=== PATIENT | female | born 1960 | race Caucasian/White ===

== ENCOUNTER 2018-12-24 10:25 | Inpatient (IN) | payer MEDICARE, OTHER ==
[~2018-12-24] VITALS: Ht 162.6 cm; Wt 99.0 kg
[2018-12-24] MEDS ORDERED: ONDA4 PO (10:39)
[2018-12-24] MEDS ORDERED: METF500T7 PO (10:39)
[2018-12-24] MEDS ORDERED: SITA100 PO (10:39)
[2018-12-24] MEDS ORDERED: GLIP10 PO (10:39)
[2018-12-24] MEDS ORDERED: ESCI10TA PO (10:39)
[2018-12-24] MEDS ORDERED: GABA-531 PO (10:39)
[2018-12-24] MEDS ORDERED: FLUT16H NASAL (10:39)
[2018-12-24] MEDS ORDERED: PIOG30TA10 PO (10:39)
[2018-12-24] MEDS ORDERED: ALBUTEROL SULFATE 2.5 MG/0.5 ML NEB SOLUTION NEB ONE (11:30)
[2018-12-24] MEDS ORDERED: MethylPREDNISolone SOD SUCC 125 MG/2 ML VIAL IVP ONE (11:30)
[2018-12-24] MEDS ORDERED: IPRATROPIUM BROMIDE 0.5 MG/2.5 ML NEB SOLUTION NEB ONE (11:30)
[2018-12-24] MEDS ORDERED: 0.9% SODIUM CHLORIDE 5 ML NEB SOLUTION NEB ONE (11:39)
[2018-12-24 11:54] LABS: BASOPHILS % (AUTO) 0.4 % (0.0-2.0); EOSINOPHILS % (AUTO) 2.1 % (1.0-6.0); HEMATOCRIT 42.8 % (36-46); HEMOGLOBIN 14.1 g/dL (12.0-16.0); LYMPHOCYTES # (AUTO) 0.8 K/uL (1.0-4.8); LYMPHOCYTES % (AUTO) 14.1 % (22.0-44.0); MEAN CORPUSCULAR HEMOGLOBIN 29.5 pg (26.0-34.0); MEAN CORPUSCULAR VOLUME 90 fL (80-100); MONOCYTES # (AUTO) 0.3 K/uL (0.1-1.0); MONOCYTES % (AUTO) 4.6 % (2.0-9.0); NEUTROPHILS # (AUTO) 4.7 K/uL (1.8-7.7); NEUTROPHILS % (AUTO) 78.8 % (40.0-70.0); PLATELET COUNT (AUTO) 164 K/uL (150-450); RED BLOOD CELL COUNT(AUTO) 4.78 MIL/uL (4.00-5.20); RED CELL DISTRIBUTION WIDTH 15.1 % (11.5-14.5)
[2018-12-24 12:19] LABS: B-TYPE NATRIURETIC PEPTIDE 133 pg/mL (0-100)
[2018-12-24 12:41] LABS: ANION GAP 8 mmol/L (8-16); CALCIUM, TOTAL 9.2 mg/dL (8.8-10.5); CARBON DIOXIDE 29 mmol/L (22-29); CHLORIDE 102 mmol/L (98-107); CREATININE 0.72 mg/dL (0.60-1.30); GLOMERULAR FILTR. RATE CALC > 60 mL/min (>60); GLUCOSE,RANDOM 122 mg/dL (70-110); POTASSIUM 3.6 mmol/L (3.5-5.1); SODIUM SERUM 139 mmol/L (136-145); UREA NITROGEN, BLOOD 10 mg/dL (7-18)
[2018-12-24 12:48] LABS: ALANINE AMINOTRANSFERASE 11 U/L (12-78); ALBUMIN 3.6 g/dL (3.4-5.0); ALKALINE PHOSPHATASE 97 U/L (46-116); ASPARTATE AMINOTRANSFERASE 15 U/L (15-37); BILIRUBIN,TOTAL 0.8 mg/dL (0.1-1.0); CREATINE KINASE, TOTAL ONLY 61 U/L (26-192); TOTAL PROTEIN, SERUM 6.7 g/dL (6.4-8.2)
[2018-12-24] MEDS ORDERED: 0.9% SODIUM CHLORIDE 10 ML SYRINGE IVP PRN (13:00)
[2018-12-24] MEDS ORDERED: ONDANSETRON HCL 4 MG/2 ML VIAL IVP PRN ×2 (13:00→21:45)
[2018-12-24] MEDS ORDERED: ACETAMINOPHEN 325 MG TABLET PO PRN (13:00)
[2018-12-24 17:30] VITALS: BP 118/58
[2018-12-24] MEDS ORDERED: ALBU8HFA PUFF (18:04)
[2018-12-24 20:05] VITALS: BP 129/69
[2018-12-24] MEDS ORDERED: OxyCODONE HCL/ACETAMINOPHEN 5-325 MG TABLET PO PRN (21:45)
[2018-12-24] MEDS ORDERED: DEXTROSE 50%-WATER 25 GM/50 ML SYRINGE IVP PRN (21:45)
[2018-12-24] MEDS ORDERED: ZOLPIDEM TARTRATE 5 MG TABLET PO PRN (21:45)
[2018-12-24] MEDS ORDERED: IPRATROPIUM BROMIDE 0.5 MG/2.5 ML NEB SOLUTION NEB PRN (21:45)
[2018-12-24] MEDS ORDERED: ONDANSETRON HCL 4 MG TABLET PO PRN (21:45)
[2018-12-24] MEDS ORDERED: ALBUTEROL SULFATE 2.5 MG/0.5 ML NEB SOLUTION NEB PRN (21:45)
[2018-12-24] MEDS ORDERED: BISACODYL 10 MG RECTAL RECTAL SUPPOSITORY PR PRN (21:45)
[2018-12-24] MEDS ORDERED: MORPHINE SULFATE 2 MG/ML SYRINGE IVP PRN (21:45)
[2018-12-24] MEDS ORDERED: MAGNESIUM HYDROXIDE SUSPENSION 30 ML UDCUP PO PRN (21:45)
[2018-12-24] MEDS: INSULIN LISPRO 100 UNITS/ML SQ PRN (22:12)
[2018-12-24] MEDS: ALBUTEROL SULFATE 2.5 MG/0.5 ML NEB SOLUTION NEB SCH (23:00)
[2018-12-24] MEDS: IPRATROPIUM BROMIDE 0.5 MG/2.5 ML NEB SOLUTION NEB SCH (23:00)
[2018-12-24 23:02] VITALS: BP 135/70
[2018-12-24] MEDS: HEPARIN SODIUM,PORCINE 5,000 UNITS/ML VIAL SQ SCH (23:05)
[2018-12-24] MEDS: MethylPREDNISolone SOD SUCC 125 MG/2 ML VIAL IVP SCH (23:05)
[2018-12-25] MEDS: ALBUTEROL SULFATE 2.5 MG/0.5 ML NEB SOLUTION NEB SCH ×6 (01:33→22:33)
[2018-12-25] MEDS: IPRATROPIUM BROMIDE 0.5 MG/2.5 ML NEB SOLUTION NEB SCH ×6 (01:33→22:33)
[2018-12-25 04:24] VITALS: BP 139/76
[2018-12-25 05:51] LABS: GLUCOMETER DEV NAME(LOC) 5N.1; GLUCOSE,POINT OF CARE 256 MG/DL (70-110)
[2018-12-25 05:52] LABS: GLUCOMETER DEV NAME(LOC) 5N.2; GLUCOSE,POINT OF CARE 244 MG/DL (70-110)
[2018-12-25] MEDS: GlipiZIDE 10 MG TABLET PO SCH ×2 (05:57→17:48)
[2018-12-25] MEDS: MethylPREDNISolone SOD SUCC 125 MG/2 ML VIAL IVP SCH ×4 (05:57→23:35)
[2018-12-25] MEDS: INSULIN LISPRO 100 UNITS/ML SQ PRN ×4 (05:59→20:51)
[2018-12-25] MEDS: GuaiFENesin/D-METHORPHAN [SUGAR-FREE] 200-20MG/10 ML SYRUP UDCUP PO PRN ×3 (06:05→17:48)
[2018-12-25 07:40] LABS: BASOPHILS % (AUTO) 0.1 % (0.0-2.0); EOSINOPHILS % (AUTO) 0 % (1.0-6.0); HEMATOCRIT 42.9 % (36-46); HEMOGLOBIN 13.8 g/dL (12.0-16.0); LYMPHOCYTES # (AUTO) 0.4 K/uL (1.0-4.8); LYMPHOCYTES % (AUTO) 5.8 % (22.0-44.0); MEAN CORPUSCULAR HEMOGLOBIN 29.4 pg (26.0-34.0); MEAN CORPUSCULAR HGB CONC 32.2 G/dL (31.0-37.0); MEAN CORPUSCULAR VOLUME 91 fL (80-100); MONOCYTES # (AUTO) 0.1 K/uL (0.1-1.0); MONOCYTES % (AUTO) 1.2 % (2.0-9.0); NEUTROPHILS % (AUTO) 92.9 % (40.0-70.0); PLATELET COUNT (AUTO) 183 K/uL (150-450)
[2018-12-25 07:41] LABS: APPEARANCE,URINE CLEAR (CLEAR); BILIRUBIN,URINE NEGATIVE (NEGATIVE); GLUCOSE, URINE (UA) >=1000 mg/dL (NEGATIVE); KETONES,URINE TRACE mg/dL (NEGATIVE); LEUKOCYTE ESTERASE ,URINE NEGATIVE (NEGATIVE); NITRATE,URINE NEGATIVE (NEGATIVE); OCCULT BLOOD,URINE NEGATIVE (NEGATIVE); PROTEIN,URINE NEGATIVE (NEGATIVE); UROBILINOGEN,URINE 0.2 mg/dL (<=1.0)
[2018-12-25 08:00] LABS: BACTERIA,URINE None Seen /HPF (None Seen); RBC,URINE None Seen /HPF (0-2); SQUAMOUS EPITHELIAL CELL,UR Rare /LPF (None Seen); WBC,URINE 0-2 /HPF (0-5)
[2018-12-25 08:09] LABS: ALANINE AMINOTRANSFERASE 10 U/L (12-78); ALBUMIN 3.5 g/dL (3.4-5.0); ALKALINE PHOSPHATASE 91 U/L (46-116); ANION GAP 9 mmol/L (8-16); ASPARTATE AMINOTRANSFERASE 12 U/L (15-37); BILIRUBIN,TOTAL 0.5 mg/dL (0.1-1.0); CALCIUM, TOTAL 9.4 mg/dL (8.8-10.5); CARBON DIOXIDE 27 mmol/L (22-29); CHLORIDE 101 mmol/L (98-107); CREATININE 0.68 mg/dL (0.60-1.30); GLOMERULAR FILTR. RATE CALC > 60 mL/min (>60); GLUCOSE,RANDOM 213 mg/dL (70-110); POTASSIUM 4.1 mmol/L (3.5-5.1); SODIUM SERUM 137 mmol/L (136-145); TOTAL PROTEIN, SERUM 7.1 g/dL (6.4-8.2); UREA NITROGEN, BLOOD 12 mg/dL (7-18)
[2018-12-25] MEDS: HEPARIN SODIUM,PORCINE 5,000 UNITS/ML VIAL SQ SCH ×3 (08:41→23:35)
[2018-12-25] MEDS: PIOGLITAZONE HCL 30 MG TABLET PO SCH (08:42)
[2018-12-25] MEDS: DOCUSATE SODIUM 100 MG CAPSULE PO SCH ×2 (08:42→19:22)
[2018-12-25] MEDS: SitaGLIPtin PHOSPHATE 100 MG TABLET PO SCH (08:42)
[2018-12-25] MEDS: FLUTICASONE PROPIONATE 50 MCG/SPRAY 16 GM NASAL SPRAY NASAL SCH (08:42)
[2018-12-25] MEDS: PANTOPRAZOLE SODIUM 40 MG DR TABLET PO SCH (08:44)
[2018-12-25] MEDS: GABAPENTIN 300 MG CAPSULE PO SCH ×3 (08:44→20:48)
[2018-12-25] MEDS: ESCITALOPRAM OXALATE 10 MG TABLET PO SCH (08:44)
[2018-12-25 11:05] VITALS: BP 118/59
[2018-12-25] MEDS: BUDESONIDE 0.5 MG/2 ML NEB SOLUTION NEB SCH ×2 (13:30→19:27)
[2018-12-25 15:35] VITALS: BP 109/59
[2018-12-25 19:32] VITALS: BP 129/69
[2018-12-25 23:32] VITALS: BP 130/67
[2018-12-26] MEDS: IPRATROPIUM BROMIDE 0.5 MG/2.5 ML NEB SOLUTION NEB SCH ×6 (02:52→23:17)
[2018-12-26] MEDS: ALBUTEROL SULFATE 2.5 MG/0.5 ML NEB SOLUTION NEB SCH ×6 (02:52→23:17)
[2018-12-26 04:02] VITALS: BP 136/61
[2018-12-26] MEDS: MethylPREDNISolone SOD SUCC 125 MG/2 ML VIAL IVP SCH ×3 (05:41→23:47)
[2018-12-26 06:29] LABS: BASOPHILS % (AUTO) 0.1 % (0.0-2.0); EOSINOPHILS % (AUTO) 0 % (1.0-6.0); HEMATOCRIT 42.2 % (36-46); HEMOGLOBIN 13.7 g/dL (12.0-16.0); LYMPHOCYTES # (AUTO) 0.4 K/uL (1.0-4.8); LYMPHOCYTES % (AUTO) 3.8 % (22.0-44.0); MEAN CORPUSCULAR HEMOGLOBIN 29.7 pg (26.0-34.0); MEAN CORPUSCULAR HGB CONC 32.5 G/dL (31.0-37.0); MEAN CORPUSCULAR VOLUME 92 fL (80-100); MONOCYTES # (AUTO) 0.3 K/uL (0.1-1.0); MONOCYTES % (AUTO) 3.3 % (2.0-9.0); NEUTROPHILS # (AUTO) 9.2 K/uL (1.8-7.7); PLATELET COUNT (AUTO) 187 K/uL (150-450); RED BLOOD CELL COUNT(AUTO) 4.61 MIL/uL (4.00-5.20); RED CELL DISTRIBUTION WIDTH 15.4 % (11.5-14.5)
[2018-12-26] MEDS: GlipiZIDE 10 MG TABLET PO SCH ×2 (06:34→17:59)
[2018-12-26] MEDS: INSULIN LISPRO 100 UNITS/ML SQ PRN ×4 (06:37→20:20)
[2018-12-26 06:55] LABS: NEUTROPHILS % (AUTO) 92.8 % (40.0-70.0)
[2018-12-26 07:20] VITALS: BP 134/84
[2018-12-26 07:23] LABS: ALANINE AMINOTRANSFERASE 10 U/L (12-78); ALBUMIN 3.5 g/dL (3.4-5.0); ALKALINE PHOSPHATASE 88 U/L (46-116); ANION GAP 10 mmol/L (8-16); ASPARTATE AMINOTRANSFERASE 20 U/L (15-37); BILIRUBIN,TOTAL 0.3 mg/dL (0.1-1.0); CALCIUM, TOTAL 9.6 mg/dL (8.8-10.5); CARBON DIOXIDE 28 mmol/L (22-29); CHLORIDE 100 mmol/L (98-107); CREATININE 0.88 mg/dL (0.60-1.30); GLOMERULAR FILTR. RATE CALC > 60 mL/min (>60); GLUCOSE,RANDOM 250 mg/dL (70-110); POTASSIUM 4.1 mmol/L (3.5-5.1); SODIUM SERUM 138 mmol/L (136-145); TOTAL PROTEIN, SERUM 7.1 g/dL (6.4-8.2); UREA NITROGEN, BLOOD 19 mg/dL (7-18)
[2018-12-26] MEDS: BUDESONIDE 0.5 MG/2 ML NEB SOLUTION NEB SCH ×2 (07:48→19:44)
[2018-12-26] MEDS: ESCITALOPRAM OXALATE 10 MG TABLET PO SCH (08:41)
[2018-12-26] MEDS: HEPARIN SODIUM,PORCINE 5,000 UNITS/ML VIAL SQ SCH ×3 (08:41→23:47)
[2018-12-26] MEDS: PIOGLITAZONE HCL 30 MG TABLET PO SCH (08:41)
[2018-12-26] MEDS: SitaGLIPtin PHOSPHATE 100 MG TABLET PO SCH (08:41)
[2018-12-26] MEDS: PANTOPRAZOLE SODIUM 40 MG DR TABLET PO SCH (08:41)
[2018-12-26] MEDS: GABAPENTIN 300 MG CAPSULE PO SCH ×3 (08:41→20:19)
[2018-12-26] MEDS: FLUTICASONE PROPIONATE 50 MCG/SPRAY 16 GM NASAL SPRAY NASAL SCH (08:42)
[2018-12-26] MEDS: DOCUSATE SODIUM 100 MG CAPSULE PO SCH ×2 (08:43→20:25)
[2018-12-26] MEDS: GuaiFENesin/D-METHORPHAN [SUGAR-FREE] 200-20MG/10 ML SYRUP UDCUP PO PRN ×2 (08:49→17:59)
[2018-12-26 11:19] VITALS: BP 115/70
[2018-12-26 16:00] VITALS: BP 128/79
[2018-12-26 19:56] VITALS: BP 126/72
[2018-12-26 20:16] LABS: GLUCOMETER DEV NAME(LOC) 5S.1; GLUCOSE,POINT OF CARE 262 MG/DL (70-110)
[2018-12-26 20:16] LABS: GLUCOMETER DEV NAME(LOC) 5S.1; GLUCOSE,POINT OF CARE 204 MG/DL (70-110)
[2018-12-26 20:17] LABS: GLUCOMETER DEV NAME(LOC) 5S.1; GLUCOSE,POINT OF CARE 224 MG/DL (70-110)
[2018-12-26] MEDS: ACETAMINOPHEN 325 MG TABLET PO PRN (20:21)
[2018-12-27] VITALS (7 sets, daily range): BP systolic 122–146; BP diastolic 62–80
[2018-12-27] MEDS: ALBUTEROL SULFATE 2.5 MG/0.5 ML NEB SOLUTION NEB SCH ×6 (03:02→22:57)
[2018-12-27] MEDS: IPRATROPIUM BROMIDE 0.5 MG/2.5 ML NEB SOLUTION NEB SCH ×6 (03:02→22:57)
[2018-12-27 05:59] LABS: EOSINOPHILS % (AUTO) 0 % (1.0-6.0); HEMATOCRIT 42.2 % (36-46); HEMOGLOBIN 13.7 g/dL (12.0-16.0); LYMPHOCYTES # (AUTO) 0.4 K/uL (1.0-4.8); LYMPHOCYTES % (AUTO) 5.6 % (22.0-44.0); MEAN CORPUSCULAR HEMOGLOBIN 29.7 pg (26.0-34.0); MEAN CORPUSCULAR HGB CONC 32.5 G/dL (31.0-37.0); MEAN CORPUSCULAR VOLUME 91 fL (80-100); MONOCYTES # (AUTO) 0.3 K/uL (0.1-1.0); MONOCYTES % (AUTO) 3.8 % (2.0-9.0); NEUTROPHILS # (AUTO) 7.1 K/uL (1.8-7.7); PLATELET COUNT (AUTO) 186 K/uL (150-450); RED BLOOD CELL COUNT(AUTO) 4.63 MIL/uL (4.00-5.20); RED CELL DISTRIBUTION WIDTH 15.4 % (11.5-14.5)
[2018-12-27 06:12] LABS: NEUTROPHILS % (AUTO) 90.6 % (40.0-70.0)
[2018-12-27] MEDS: GlipiZIDE 10 MG TABLET PO SCH ×2 (06:14→17:17)
[2018-12-27] MEDS: MethylPREDNISolone SOD SUCC 125 MG/2 ML VIAL IVP SCH ×3 (06:14→23:41)
[2018-12-27] MEDS: INSULIN LISPRO 100 UNITS/ML SQ PRN ×3 (06:19→20:50)
[2018-12-27 06:27] LABS: ALANINE AMINOTRANSFERASE 14 U/L (12-78); ALBUMIN 3.5 g/dL (3.4-5.0); ALKALINE PHOSPHATASE 80 U/L (46-116); ANION GAP 7 mmol/L (8-16); ASPARTATE AMINOTRANSFERASE 16 U/L (15-37); BILIRUBIN,TOTAL 0.3 mg/dL (0.1-1.0); CALCIUM, TOTAL 9.1 mg/dL (8.8-10.5); CARBON DIOXIDE 31 mmol/L (22-29); CHLORIDE 101 mmol/L (98-107); CREATININE 0.79 mg/dL (0.60-1.30); GLOMERULAR FILTR. RATE CALC > 60 mL/min (>60); GLUCOSE,RANDOM 200 mg/dL (70-110); POTASSIUM 4.3 mmol/L (3.5-5.1); SODIUM SERUM 139 mmol/L (136-145); UREA NITROGEN, BLOOD 21 mg/dL (7-18)
[2018-12-27] MEDS: BUDESONIDE 0.5 MG/2 ML NEB SOLUTION NEB SCH ×2 (07:09→19:28)
[2018-12-27] MEDS: SitaGLIPtin PHOSPHATE 100 MG TABLET PO SCH (08:32)
[2018-12-27] MEDS: HEPARIN SODIUM,PORCINE 5,000 UNITS/ML VIAL SQ SCH ×3 (08:32→23:41)
[2018-12-27] MEDS: PIOGLITAZONE HCL 30 MG TABLET PO SCH (08:32)
[2018-12-27] MEDS: GABAPENTIN 300 MG CAPSULE PO SCH ×3 (08:32→20:39)
[2018-12-27] MEDS: ESCITALOPRAM OXALATE 10 MG TABLET PO SCH (08:32)
[2018-12-27] MEDS: FLUTICASONE PROPIONATE 50 MCG/SPRAY 16 GM NASAL SPRAY NASAL SCH (08:32)
[2018-12-27] MEDS: DOCUSATE SODIUM 100 MG CAPSULE PO SCH ×2 (08:32→20:39)
[2018-12-27] MEDS: PANTOPRAZOLE SODIUM 40 MG DR TABLET PO SCH (08:32)
[2018-12-27 11:57] LABS: GLUCOMETER DEV NAME(LOC) 5S.1; GLUCOSE,POINT OF CARE 180 MG/DL (70-110)
[2018-12-27 12:31] LABS: GLUCOMETER DEV NAME(LOC) 5N.1; GLUCOSE,POINT OF CARE 255 MG/DL (70-110)
[2018-12-27 12:31] LABS: GLUCOMETER DEV NAME(LOC) 5N.1; GLUCOSE,POINT OF CARE 204 MG/DL (70-110)
[2018-12-27 12:32] LABS: GLUCOMETER DEV NAME(LOC) 5N.1; GLUCOSE,POINT OF CARE 235 MG/DL (70-110)
[2018-12-27 12:32] LABS: GLUCOMETER DEV NAME(LOC) 5N.1; GLUCOSE,POINT OF CARE 149 MG/DL (70-110)
[2018-12-27 12:32] LABS: GLUCOMETER DEV NAME(LOC) 5N.1; GLUCOSE,POINT OF CARE 258 MG/DL (70-110)
[2018-12-27 12:32] LABS: GLUCOMETER DEV NAME(LOC) 5N.1; GLUCOSE,POINT OF CARE 240 MG/DL (70-110)
[2018-12-27] MEDS: GuaiFENesin/D-METHORPHAN [SUGAR-FREE] 200-20MG/10 ML SYRUP UDCUP PO PRN (15:16)
[2018-12-27 20:37] LABS: GLUCOMETER DEV NAME(LOC) 5N.2; GLUCOSE,POINT OF CARE 108 MG/DL (70-110)
[2018-12-27] MEDS: ACETAMINOPHEN 325 MG TABLET PO PRN (23:45)
[2018-12-28] MEDS: ALBUTEROL SULFATE 2.5 MG/0.5 ML NEB SOLUTION NEB SCH ×3 (03:08→11:14)
[2018-12-28] MEDS: IPRATROPIUM BROMIDE 0.5 MG/2.5 ML NEB SOLUTION NEB SCH ×3 (03:08→11:14)
[2018-12-28 05:06] VITALS: BP 136/75
[2018-12-28] MEDS: GlipiZIDE 10 MG TABLET PO SCH (05:55)
[2018-12-28] MEDS: INSULIN LISPRO 100 UNITS/ML SQ PRN ×2 (06:07→12:23)
[2018-12-28 06:31] LABS: BASOPHILS % (AUTO) 0.2 % (0.0-2.0); EOSINOPHILS % (AUTO) 0.1 % (1.0-6.0); HEMATOCRIT 42.1 % (36-46); HEMOGLOBIN 13.7 g/dL (12.0-16.0); LYMPHOCYTES # (AUTO) 0.5 K/uL (1.0-4.8); LYMPHOCYTES % (AUTO) 9.6 % (22.0-44.0); MEAN CORPUSCULAR HEMOGLOBIN 29.5 pg (26.0-34.0); MEAN CORPUSCULAR HGB CONC 32.5 G/dL (31.0-37.0); MEAN CORPUSCULAR VOLUME 91 fL (80-100); MONOCYTES # (AUTO) 0.2 K/uL (0.1-1.0); MONOCYTES % (AUTO) 4.3 % (2.0-9.0); NEUTROPHILS # (AUTO) 4.4 K/uL (1.8-7.7); PLATELET COUNT (AUTO) 176 K/uL (150-450); RED BLOOD CELL COUNT(AUTO) 4.64 MIL/uL (4.00-5.20)
[2018-12-28 06:33] LABS: NEUTROPHILS % (AUTO) 85.8 % (40.0-70.0)
[2018-12-28 06:56] LABS: ALANINE AMINOTRANSFERASE 30 U/L (12-78); ALBUMIN 3.5 g/dL (3.4-5.0); ALKALINE PHOSPHATASE 74 U/L (46-116); ANION GAP 5 mmol/L (8-16); ASPARTATE AMINOTRANSFERASE 30 U/L (15-37); BILIRUBIN,TOTAL 0.4 mg/dL (0.1-1.0); CARBON DIOXIDE 36 mmol/L (22-29); CHLORIDE 99 mmol/L (98-107); CREATININE 0.89 mg/dL (0.60-1.30); GLOMERULAR FILTR. RATE CALC > 60 mL/min (>60); GLUCOSE,RANDOM 219 mg/dL (70-110); POTASSIUM 4.2 mmol/L (3.5-5.1); SODIUM SERUM 140 mmol/L (136-145); TOTAL PROTEIN, SERUM 6.8 g/dL (6.4-8.2); UREA NITROGEN, BLOOD 20 mg/dL (7-18)
[2018-12-28 07:56] VITALS: BP 144/103
[2018-12-28] MEDS: BUDESONIDE 0.5 MG/2 ML NEB SOLUTION NEB SCH (07:59)
[2018-12-28] MEDS: DOCUSATE SODIUM 100 MG CAPSULE PO SCH ×2 (08:18→08:24)
[2018-12-28] MEDS: GABAPENTIN 300 MG CAPSULE PO SCH (08:18)
[2018-12-28] MEDS: FLUTICASONE PROPIONATE 50 MCG/SPRAY 16 GM NASAL SPRAY NASAL SCH (08:18)
[2018-12-28] MEDS: PIOGLITAZONE HCL 30 MG TABLET PO SCH (08:18)
[2018-12-28] MEDS: HEPARIN SODIUM,PORCINE 5,000 UNITS/ML VIAL SQ SCH (08:18)
[2018-12-28] MEDS: PANTOPRAZOLE SODIUM 40 MG DR TABLET PO SCH (08:18)
[2018-12-28] MEDS: SitaGLIPtin PHOSPHATE 100 MG TABLET PO SCH (08:18)
[2018-12-28] MEDS: ESCITALOPRAM OXALATE 10 MG TABLET PO SCH (08:18)
[2018-12-28] MEDS: MethylPREDNISolone SOD SUCC 125 MG/2 ML VIAL IVP SCH (08:18)
[2018-12-28] MEDS ORDERED: AZIT250T9 PO ×2 (10:34→12:10)
[2018-12-28] MEDS ORDERED: PRED20 PO (10:35)
[2018-12-28 11:15] VITALS: BP 139/74
[2018-12-28 20:23] LABS: GLUCOMETER DEV NAME(LOC) 5S.1; GLUCOSE,POINT OF CARE 211 MG/DL (70-110)
[2018-12-28 20:23] LABS: GLUCOMETER DEV NAME(LOC) 5S.1; GLUCOSE,POINT OF CARE 269 MG/DL (70-110)
[2018-12-28 20:23] LABS: GLUCOMETER DEV NAME(LOC) 5S.1; GLUCOSE,POINT OF CARE 221 MG/DL (70-110)
== END 2018-12-28 14:10 | disposition home or self-care (01) | DRG 202 ==
LOC: EMS 10:25 → 5S 16:52
PROVIDERS: ADMIT Hospitalist; ATTEND Hospitalist
DX: J45.901 Unspecified asthma with (acute) exacerbation (principal); J44.1 Chronic obstructive pulmonary disease with (acute) exacerbation; E66.01 Morbid (severe) obesity due to excess calories; E11.40 Type 2 diabetes mellitus with diabetic neuropathy, unspecified; F17.200 Nicotine dependence, unspecified, uncomplicated; E78.00 Pure hypercholesterolemia, unspecified; F12.90 Cannabis use, unspecified, uncomplicated; E78.5 Hyperlipidemia, unspecified; I10 Essential (primary) hypertension; Z83.3 Family history of diabetes mellitus; Z88.0 Allergy status to penicillin; Z79.899 Other long term (current) drug therapy; Z91.19 Patient's noncompliance with other medical treatment and regimen; Z68.37 Body mass index [BMI] 37.0-37.9, adult
CPT/HCPCS: 93005; 94640; 94644; J1644; J2930

== ENCOUNTER 2019-01-02 10:39 | Inpatient (IN) | payer MEDICARE, OTHER ==
[~2019-01-02] VITALS: Ht 165.1 cm; Wt 101.0 kg
[~2019-01-02 10:39] MED LIST: ALBU8HFA PUFF; AZIT250T9 PO; ESCI10TA PO; FLUT16H NASAL; GABA-531 PO; GLIP10 PO; METF500T20 PO; PIOG30TA10 PO; PRED20 PO; SITA100 PO
[2019-01-02 11:04] LABS: GLUCOSE,POINT OF CARE 145 MG/DL (70-110)
[2019-01-02] MEDS ORDERED: METF-960 PO (11:13)
[2019-01-02] MEDS ORDERED: ALBUTEROL SULFATE 5 MG/ML 20 ML NEB SOLN [BULK] NEB ONE (11:15)
[2019-01-02] MEDS ORDERED: IPRATROPIUM BROMIDE 0.5 MG/2.5 ML NEB SOLUTION NEB ONE (11:15)
[2019-01-02] MEDS ORDERED: MethylPREDNISolone SOD SUCC 125 MG/2 ML VIAL IVP ONE (11:15)
[2019-01-02 11:45] LABS: BASOPHILS % (AUTO) 1.2 % (0.0-2.0); EOSINOPHILS % (AUTO) 2.3 % (1.0-6.0); HEMATOCRIT 42.8 % (36-46); HEMOGLOBIN 13.8 g/dL (12.0-16.0); LYMPHOCYTES # (AUTO) 2.3 K/uL (1.0-4.8); MEAN CORPUSCULAR HEMOGLOBIN 29.3 pg (26.0-34.0); MEAN CORPUSCULAR HGB CONC 32.3 G/dL (31.0-37.0); MEAN CORPUSCULAR VOLUME 91 fL (80-100); MONOCYTES # (AUTO) 0.6 K/uL (0.1-1.0); MONOCYTES % (AUTO) 7.2 % (2.0-9.0); NEUTROPHILS # (AUTO) 5.1 K/uL (1.8-7.7); NEUTROPHILS % (AUTO) 61.3 % (40.0-70.0); PLATELET COUNT (AUTO) 184 K/uL (150-450); RED BLOOD CELL COUNT(AUTO) 4.72 MIL/uL (4.00-5.20)
[2019-01-02] MEDS ORDERED: DEXTROSE 50%-WATER 25 GM/50 ML SYRINGE IVP PRN (11:45)
[2019-01-02] MEDS ORDERED: OxyCODONE HCL/ACETAMINOPHEN 5-325 MG TABLET PO PRN (12:00)
[2019-01-02] MEDS ORDERED: ACETAMINOPHEN 325 MG TABLET PO PRN (12:00)
[2019-01-02] MEDS ORDERED: MAGNESIUM HYDROXIDE SUSPENSION 30 ML UDCUP PO PRN (12:00)
[2019-01-02] MEDS: MONTELUKAST SODIUM 10 MG TABLET PO SCH (12:18)
[2019-01-02 12:20] LABS: ANION GAP 7 mmol/L (8-16); CALCIUM, TOTAL 8.6 mg/dL (8.8-10.5); CARBON DIOXIDE 32 mmol/L (22-29); CHLORIDE 105 mmol/L (98-107); CREATININE 0.82 mg/dL (0.60-1.30); GLOMERULAR FILTR. RATE CALC > 60 mL/min (>60); GLUCOSE,RANDOM 153 mg/dL (70-110); POTASSIUM 3.6 mmol/L (3.5-5.1); SODIUM SERUM 144 mmol/L (136-145); UREA NITROGEN, BLOOD 13 mg/dL (7-18)
[2019-01-02 12:24] LABS: ALANINE AMINOTRANSFERASE 24 U/L (12-78); ALBUMIN 3.2 g/dL (3.4-5.0); ALKALINE PHOSPHATASE 82 U/L (46-116); ASPARTATE AMINOTRANSFERASE 12 U/L (15-37); BILIRUBIN,TOTAL 0.7 mg/dL (0.1-1.0); CREATINE KINASE, TOTAL ONLY 53 U/L (26-192); TOTAL PROTEIN, SERUM 5.8 g/dL (6.4-8.2)
[2019-01-02 14:33] VITALS: BP 137/78
[2019-01-02] MEDS: HEPARIN SODIUM,PORCINE 5,000 UNITS/ML VIAL SQ SCH ×2 (17:10→23:43)
[2019-01-02] MEDS: MethylPREDNISolone SOD SUCC 125 MG/2 ML VIAL IVP SCH ×2 (17:11→23:43)
[2019-01-02] MEDS: INSULIN LISPRO 100 UNITS/ML SQ PRN ×2 (17:33→20:20)
[2019-01-02 17:58] LABS: GLUCOMETER DEV NAME(LOC) 6N.1; GLUCOSE,POINT OF CARE 305 MG/DL (70-110)
[2019-01-02 19:25] VITALS: BP 143/72
[2019-01-02] MEDS: ALBUTEROL SULFATE 2.5 MG/0.5 ML NEB SOLUTION NEB PRN (19:57)
[2019-01-02] MEDS: IPRATROPIUM BROMIDE 0.5 MG/2.5 ML NEB SOLUTION NEB PRN (19:57)
[2019-01-02] MEDS: DOCUSATE SODIUM 100 MG CAPSULE PO SCH (20:19)
[2019-01-02] MEDS: GABAPENTIN 300 MG CAPSULE PO SCH (23:43)
[2019-01-03 00:38] LABS: GLUCOMETER DEV NAME(LOC) 6N.1; GLUCOSE,POINT OF CARE 323 MG/DL (70-110)
[2019-01-03 03:45] VITALS: BP 132/76
[2019-01-03] MEDS: MethylPREDNISolone SOD SUCC 125 MG/2 ML VIAL IVP SCH ×4 (06:57→23:10)
[2019-01-03] MEDS: INSULIN LISPRO 100 UNITS/ML SQ PRN ×4 (07:18→20:40)
[2019-01-03 07:43] VITALS: BP 135/93
[2019-01-03] MEDS: FAMOTIDINE 20 MG TABLET PO SCH (08:36)
[2019-01-03] MEDS: GABAPENTIN 300 MG CAPSULE PO SCH ×3 (08:37→23:13)
[2019-01-03] MEDS: HEPARIN SODIUM,PORCINE 5,000 UNITS/ML VIAL SQ SCH ×3 (08:37→23:13)
[2019-01-03] MEDS: DOCUSATE SODIUM 100 MG CAPSULE PO SCH ×2 (08:37→20:39)
[2019-01-03] MEDS: MONTELUKAST SODIUM 10 MG TABLET PO SCH (09:33)
[2019-01-03 11:25] VITALS: BP 128/76
[2019-01-03 15:15] LABS: GLUCOMETER DEV NAME(LOC) 6N.1; GLUCOSE,POINT OF CARE 249 MG/DL (70-110)
[2019-01-03 15:15] LABS: GLUCOMETER DEV NAME(LOC) 6N.1; GLUCOSE,POINT OF CARE 228 MG/DL (70-110)
[2019-01-03 15:57] VITALS: BP 128/71
[2019-01-03] MEDS: ALBUTEROL SULFATE 2.5 MG/0.5 ML NEB SOLUTION NEB PRN (16:48)
[2019-01-03] MEDS: IPRATROPIUM BROMIDE 0.5 MG/2.5 ML NEB SOLUTION NEB PRN (16:48)
[2019-01-03 19:55] VITALS: BP 128/77
[2019-01-03 22:58] LABS: GLUCOMETER DEV NAME(LOC) 6N.1; GLUCOSE,POINT OF CARE 230 MG/DL (70-110)
[2019-01-03 22:58] LABS: GLUCOMETER DEV NAME(LOC) 6N.1; GLUCOSE,POINT OF CARE 262 MG/DL (70-110)
[2019-01-03 23:48] VITALS: BP 141/78
[2019-01-04] MEDS: IPRATROPIUM BROMIDE 0.5 MG/2.5 ML NEB SOLUTION NEB PRN (00:05)
[2019-01-04] MEDS: ALBUTEROL SULFATE 2.5 MG/0.5 ML NEB SOLUTION NEB PRN (00:05)
[2019-01-04 05:20] VITALS: BP 139/67
[2019-01-04] MEDS: INSULIN LISPRO 100 UNITS/ML SQ PRN ×4 (06:32→22:01)
[2019-01-04] MEDS: MethylPREDNISolone SOD SUCC 125 MG/2 ML VIAL IVP SCH (06:32)
[2019-01-04 07:52] VITALS: BP 137/86
[2019-01-04] MEDS: DOCUSATE SODIUM 100 MG CAPSULE PO SCH ×2 (08:31→21:00)
[2019-01-04] MEDS: MONTELUKAST SODIUM 10 MG TABLET PO SCH (08:31)
[2019-01-04] MEDS: FAMOTIDINE 20 MG TABLET PO SCH (08:31)
[2019-01-04] MEDS: HEPARIN SODIUM,PORCINE 5,000 UNITS/ML VIAL SQ SCH ×2 (08:32→16:21)
[2019-01-04] MEDS: GABAPENTIN 300 MG CAPSULE PO SCH ×2 (08:32→16:21)
[2019-01-04 09:56] LABS: GLUCOMETER DEV NAME(LOC) 6N.1; GLUCOSE,POINT OF CARE 252 MG/DL (70-110)
[2019-01-04 12:00] VITALS: BP 136/77
[2019-01-04 12:12] LABS: GLUCOMETER DEV NAME(LOC) 6N.1; GLUCOSE,POINT OF CARE 256 MG/DL (70-110)
[2019-01-04] MEDS: MethylPREDNISolone SOD SUCC 40 MG/ML VIAL IVP SCH ×2 (12:38→16:54)
[2019-01-04] MEDS: ALBUTEROL SULFATE 2.5 MG/0.5 ML NEB SOLUTION NEB SCH ×2 (16:58→16:59)
[2019-01-04 16:59] VITALS: BP 124/68
[2019-01-04] MEDS: IPRATROPIUM BROMIDE 0.5 MG/2.5 ML NEB SOLUTION NEB SCH ×2 (16:59→20:30)
[2019-01-04 17:46] LABS: GLUCOMETER DEV NAME(LOC) 6N.1; GLUCOSE,POINT OF CARE 198 MG/DL (70-110)
[2019-01-04 20:00] VITALS: BP 132/77
[2019-01-04 22:00] LABS: GLUCOMETER DEV NAME(LOC) 6N.1; GLUCOSE,POINT OF CARE 409 MG/DL (70-110)
[2019-01-04 22:01] LABS: GLUCOMETER DEV NAME(LOC) 6N.1; GLUCOSE,POINT OF CARE 370 MG/DL (70-110)
[2019-01-05] VITALS: BP 130/76
[2019-01-05] MEDS: GABAPENTIN 300 MG CAPSULE PO SCH ×2 (01:01→08:41)
[2019-01-05] MEDS: MethylPREDNISolone SOD SUCC 40 MG/ML VIAL IVP SCH ×2 (01:01→06:34)
[2019-01-05] MEDS: HEPARIN SODIUM,PORCINE 5,000 UNITS/ML VIAL SQ SCH ×2 (01:01→08:43)
[2019-01-05] MEDS: ALBUTEROL SULFATE 2.5 MG/0.5 ML NEB SOLUTION NEB SCH ×3 (01:24→11:48)
[2019-01-05] MEDS: IPRATROPIUM BROMIDE 0.5 MG/2.5 ML NEB SOLUTION NEB SCH ×3 (01:24→11:48)
[2019-01-05 04:00] VITALS: BP 122/80
[2019-01-05] MEDS: INSULIN LISPRO 100 UNITS/ML SQ PRN ×2 (06:36→11:58)
[2019-01-05 07:01] LABS: GLUCOMETER DEV NAME(LOC) 6N.1; GLUCOSE,POINT OF CARE 280 MG/DL (70-110)
[2019-01-05 07:31] VITALS: BP 108/52
[2019-01-05] MEDS: MONTELUKAST SODIUM 10 MG TABLET PO SCH (08:41)
[2019-01-05] MEDS: DOCUSATE SODIUM 100 MG CAPSULE PO SCH (08:42)
[2019-01-05] MEDS: FAMOTIDINE 20 MG TABLET PO SCH (08:42)
[2019-01-05] MEDS ORDERED: PredniSONE 20 MG TABLET PO ONE (08:45)
[2019-01-05] MEDS ORDERED: PRED10 PO (10:07)
[2019-01-05 20:06] LABS: GLUCOMETER DEV NAME(LOC) 6N.1; GLUCOSE,POINT OF CARE 319 MG/DL (70-110)
== END 2019-01-05 13:00 | disposition home or self-care (01) | DRG 192 ==
LOC: EMS 10:40 → 6N 14:22
PROVIDERS: ADMIT Internal Medicine; ATTEND Internal Medicine
DX: J44.1 Chronic obstructive pulmonary disease with (acute) exacerbation (principal); E66.01 Morbid (severe) obesity due to excess calories; E11.40 Type 2 diabetes mellitus with diabetic neuropathy, unspecified; E78.00 Pure hypercholesterolemia, unspecified; F12.90 Cannabis use, unspecified, uncomplicated; F17.210 Nicotine dependence, cigarettes, uncomplicated; Z91.19 Patient's noncompliance with other medical treatment and regimen; Z68.37 Body mass index [BMI] 37.0-37.9, adult; Z83.3 Family history of diabetes mellitus; Z82.49 Family history of ischemic heart disease and other diseases of the circulatory system; Z79.899 Other long term (current) drug therapy; Z88.0 Allergy status to penicillin
CPT/HCPCS: 87081; 93005; 94640; 96374; 97116; 97161; 97165; J1644; J2920; J2930

== ENCOUNTER 2019-01-29 22:04 | Emergency (ER) | payer MEDICARE, OTHER ==
[~2019-01-29] VITALS: Ht 162.6 cm; Wt 113.6 kg
[~2019-01-29 22:04] MED LIST changes: +METF-960 PO; -METF500T20 PO; +PRED10 PO
[2019-01-29 22:21] LABS: GLUCOSE,POINT OF CARE 98 MG/DL (70-110)
[2019-01-29] MEDS ORDERED: MethylPREDNISolone SOD SUCC 125 MG/2 ML VIAL IVP ONE (22:45)
[2019-01-29] MEDS ORDERED: KETOROLAC TROMETHAMINE 30 MG/ML VIAL IVP ONE (22:45)
[2019-01-29] MEDS ORDERED: MAGNESIUM SULFATE 2 GM/WATER 50 ML IV ONE (22:45)
[2019-01-29] MEDS ORDERED: SODIUM CHLORIDE 0.9% 1,000 ML IV ONE (23:00)
[2019-01-29 23:04] LABS: BASOPHILS % (AUTO) 0.3 % (0.0-2.0); HEMATOCRIT 39.2 % (36-46); HEMOGLOBIN 13.2 g/dL (12.0-16.0); LYMPHOCYTES # (AUTO) 1.8 K/uL (1.0-4.8); LYMPHOCYTES % (AUTO) 36.8 % (22.0-44.0); MEAN CORPUSCULAR HEMOGLOBIN 30.3 pg (26.0-34.0); MEAN CORPUSCULAR HGB CONC 33.7 G/dL (31.0-37.0); MEAN CORPUSCULAR VOLUME 90 fL (80-100); MONOCYTES # (AUTO) 0.5 K/uL (0.1-1.0); MONOCYTES % (AUTO) 9.3 % (2.0-9.0); NEUTROPHILS # (AUTO) 2.5 K/uL (1.8-7.7); NEUTROPHILS % (AUTO) 51.6 % (40.0-70.0); PLATELET COUNT (AUTO) 198 K/uL (150-450); RED BLOOD CELL COUNT(AUTO) 4.36 MIL/uL (4.00-5.20); RED CELL DISTRIBUTION WIDTH 15.1 % (11.5-14.5)
[2019-01-29 23:14] LABS: ANION GAP 9 mmol/L (8-16); CARBON DIOXIDE 30 mmol/L (22-29); CHLORIDE 103 mmol/L (98-107); CREATININE 0.78 mg/dL (0.60-1.30); GLUCOSE,RANDOM 108 mg/dL (70-110); POTASSIUM 3.6 mmol/L (3.5-5.1); SODIUM SERUM 142 mmol/L (136-145); UREA NITROGEN, BLOOD 13 mg/dL (7-18)
[2019-01-29 23:15] LABS: CALCIUM, TOTAL 9.2 mg/dL (8.8-10.5); GLOMERULAR FILTR. RATE CALC > 60 mL/min (>60)
[2019-01-29 23:21] LABS: ALANINE AMINOTRANSFERASE 18 U/L (12-78); ALBUMIN 3.2 g/dL (3.4-5.0); ALKALINE PHOSPHATASE 106 U/L (46-116); BILIRUBIN,TOTAL 0.5 mg/dL (0.1-1.0); TOTAL PROTEIN, SERUM 6.6 g/dL (6.4-8.2)
[2019-01-29 23:30] LABS: ASPARTATE AMINOTRANSFERASE 17 U/L (15-37)
[2019-01-29 23:51] LABS: APPEARANCE,URINE CLEAR (CLEAR); BILIRUBIN,URINE NEGATIVE (NEGATIVE); GLUCOSE, URINE (UA) NEGATIVE (NEGATIVE); KETONES,URINE NEGATIVE (NEGATIVE); LEUKOCYTE ESTERASE ,URINE NEGATIVE (NEGATIVE); NITRATE,URINE NEGATIVE (NEGATIVE); OCCULT BLOOD,URINE NEGATIVE (NEGATIVE); PROTEIN,URINE NEGATIVE (NEGATIVE); UROBILINOGEN,URINE 0.2 mg/dL (<=1.0)
[2019-01-30 00:48] VITALS: BP 118/75
== END 2019-01-30 01:20 | disposition home or self-care (01) ==
LOC: EMS 22:05
DX: G44.209 Tension-type headache, unspecified, not intractable (principal); R42 Dizziness and giddiness; I11.0 Hypertensive heart disease with heart failure; I50.9 Heart failure, unspecified; J44.9 Chronic obstructive pulmonary disease, unspecified; E11.9 Type 2 diabetes mellitus without complications; E78.00 Pure hypercholesterolemia, unspecified; F17.210 Nicotine dependence, cigarettes, uncomplicated; F12.90 Cannabis use, unspecified, uncomplicated; Z88.0 Allergy status to penicillin; Z79.84 Long term (current) use of oral hypoglycemic drugs
CPT/HCPCS: 36415; 70450; 80053; 81003; 82962; 84484; 85025; 93005; 96365; 96366; 96375; 99284; J1885; J2930; J3475; J7030

== ENCOUNTER 2019-02-19 15:01 | Emergency (ER) | payer MEDICARE, OTHER ==
[~2019-02-19] VITALS: Ht 162.6 cm; Wt 100.0 kg
[~2019-02-19 15:01] MED LIST changes: -AZIT250T9 PO; -FLUT16H NASAL; -PRED10 PO; -PRED20 PO; -SITA100 PO
[2019-02-19 15:17] LABS: GLUCOSE,POINT OF CARE 209 MG/DL (70-110)
[2019-02-19 16:52] LABS: BASOPHILS % (AUTO) 0.7 % (0.0-2.0); EOSINOPHILS % (AUTO) 4.3 % (1.0-6.0); HEMATOCRIT 37.3 % (36-46); HEMOGLOBIN 12.4 g/dL (12.0-16.0); LYMPHOCYTES # (AUTO) 1.3 K/uL (1.0-4.8); LYMPHOCYTES % (AUTO) 21.7 % (22.0-44.0); MEAN CORPUSCULAR HEMOGLOBIN 30.4 pg (26.0-34.0); MEAN CORPUSCULAR HGB CONC 33.2 G/dL (31.0-37.0); MEAN CORPUSCULAR VOLUME 92 fL (80-100); MONOCYTES # (AUTO) 0.4 K/uL (0.1-1.0); MONOCYTES % (AUTO) 6.8 % (2.0-9.0); NEUTROPHILS % (AUTO) 66.5 % (40.0-70.0); PLATELET COUNT (AUTO) 184 K/uL (150-450); RED BLOOD CELL COUNT(AUTO) 4.08 MIL/uL (4.00-5.20); RED CELL DISTRIBUTION WIDTH 15.7 % (11.5-14.5)
[2019-02-19 17:02] LABS: ANION GAP 5 mmol/L (8-16); CALCIUM, TOTAL 8.9 mg/dL (8.8-10.5); CARBON DIOXIDE 32 mmol/L (22-29); CHLORIDE 106 mmol/L (98-107); CREATININE 0.76 mg/dL (0.60-1.30); GLOMERULAR FILTR. RATE CALC > 60 mL/min (>60); GLUCOSE,RANDOM 141 mg/dL (70-110); POTASSIUM 3.9 mmol/L (3.5-5.1); SODIUM SERUM 143 mmol/L (136-145); UREA NITROGEN, BLOOD 13 mg/dL (7-18)
[2019-02-19 17:09] LABS: ALANINE AMINOTRANSFERASE 16 U/L (12-78); ALBUMIN 3.2 g/dL (3.4-5.0); ALKALINE PHOSPHATASE 125 U/L (46-116); ASPARTATE AMINOTRANSFERASE 13 U/L (15-37); BILIRUBIN,TOTAL 0.3 mg/dL (0.1-1.0); CREATINE KINASE, TOTAL ONLY 66 U/L (26-192); TOTAL PROTEIN, SERUM 6.5 g/dL (6.4-8.2)
[2019-02-19 18:19] VITALS: BP 146/84
== END 2019-02-19 19:00 | disposition home or self-care (01) ==
LOC: EMS 15:02
DX: L03.116 Cellulitis of left lower limb (principal); R60.0 Localized edema; I11.0 Hypertensive heart disease with heart failure; I50.9 Heart failure, unspecified; E11.9 Type 2 diabetes mellitus without complications; J44.9 Chronic obstructive pulmonary disease, unspecified; F17.210 Nicotine dependence, cigarettes, uncomplicated; F12.90 Cannabis use, unspecified, uncomplicated; Z88.0 Allergy status to penicillin; Z79.84 Long term (current) use of oral hypoglycemic drugs
CPT/HCPCS: 93005; 93970

== ENCOUNTER 2019-05-26 22:00 | Inpatient (IN) | payer MEDICARE, OTHER ==
[~2019-05-26] VITALS: Ht 162.6 cm; Wt 100.5 kg
[2019-05-26] MEDS ORDERED: ATOR40TA71 PO (22:57)
[2019-05-26] MEDS ORDERED: ESCI10TA61 PO (22:57)
[2019-05-26] MEDS ORDERED: GLIP10TA9 PO (22:57)
[2019-05-26] MEDS ORDERED: METF-446 PO (22:57)
[2019-05-26] MEDS ORDERED: PIOG30TA71 PO (22:57)
[2019-05-26] MEDS ORDERED: SITA100 PO (22:57)
[2019-05-26 23:40] LABS: GLUCOSE,POINT OF CARE 107 MG/DL (70-110)
[2019-05-26 23:42] LABS: BASOPHILS % (AUTO) 0.8 % (0.0-2.0); EOSINOPHILS % (AUTO) 7.8 % (1.0-6.0); HEMATOCRIT 37.5 % (36-46); HEMOGLOBIN 12.2 g/dL (12.0-16.0); LYMPHOCYTES % (AUTO) 29.9 % (22.0-44.0); MEAN CORPUSCULAR HGB CONC 32.6 G/dL (31.0-37.0); MEAN CORPUSCULAR VOLUME 89 fL (80-100); MONOCYTES # (AUTO) 0.5 K/uL (0.1-1.0); MONOCYTES % (AUTO) 8.1 % (2.0-9.0); NEUTROPHILS # (AUTO) 3.6 K/uL (1.8-7.7); NEUTROPHILS % (AUTO) 53.4 % (40.0-70.0); PLATELET COUNT (AUTO) 184 K/uL (150-450); RED BLOOD CELL COUNT(AUTO) 4.22 MIL/uL (4.00-5.20); RED CELL DISTRIBUTION WIDTH 14.2 % (11.5-14.5)
[2019-05-26 23:52] LABS: ANION GAP 7 mmol/L (8-16); CALCIUM, TOTAL 8.8 mg/dL (8.8-10.5); CARBON DIOXIDE 31 mmol/L (22-29); CHLORIDE 105 mmol/L (98-107); CREATININE 0.84 mg/dL (0.60-1.30); GLOMERULAR FILTR. RATE CALC > 60 mL/min (>60); GLUCOSE,RANDOM 92 mg/dL (70-110); POTASSIUM 3.5 mmol/L (3.5-5.1); SODIUM SERUM 143 mmol/L (136-145); UREA NITROGEN, BLOOD 11 mg/dL (7-18)
[2019-05-26 23:57] LABS: ALANINE AMINOTRANSFERASE 17 U/L (12-78); ALBUMIN 3.2 g/dL (3.4-5.0); ALKALINE PHOSPHATASE 96 U/L (46-116); ASPARTATE AMINOTRANSFERASE 12 U/L (15-37); BILIRUBIN,TOTAL 0.3 mg/dL (0.1-1.0); TOTAL PROTEIN, SERUM 6.6 g/dL (6.4-8.2)
[2019-05-26 23:59] LABS: B-TYPE NATRIURETIC PEPTIDE 60 pg/mL (0-100)
[2019-05-27] MEDS ORDERED: FUROSEMIDE 40 MG/4 ML VIAL IVP ONE (02:00)
[2019-05-27 02:47] LABS: APPEARANCE,URINE CLEAR (CLEAR); BILIRUBIN,URINE NEGATIVE (NEGATIVE); GLUCOSE, URINE (UA) NEGATIVE (NEGATIVE); KETONES,URINE NEGATIVE (NEGATIVE); LEUKOCYTE ESTERASE ,URINE TRACE (NEGATIVE); NITRATE,URINE NEGATIVE (NEGATIVE); OCCULT BLOOD,URINE NEGATIVE (NEGATIVE); PROTEIN,URINE NEGATIVE (NEGATIVE); UROBILINOGEN,URINE 0.2 mg/dL (<=1.0)
[2019-05-27 02:57] LABS: BACTERIA,URINE None Seen /HPF (None Seen); RBC,URINE None Seen /HPF (0-2); SQUAMOUS EPITHELIAL CELL,UR Rare /LPF (None Seen)
[2019-05-27] MEDS ORDERED: ONDANSETRON HCL 4 MG/2 ML VIAL IVP PRN ×2 (06:15→17:45)
[2019-05-27] MEDS ORDERED: ACETAMINOPHEN 325 MG TABLET PO PRN ×2 (06:15→17:45)
[2019-05-27] MEDS ORDERED: 0.9% SODIUM CHLORIDE 10 ML SYRINGE IVP PRN (06:15)
[2019-05-27 09:22] LABS: GLUCOSE,POINT OF CARE 116 MG/DL (70-110)
[2019-05-27] MEDS ORDERED: MAGNESIUM HYDROXIDE SUSPENSION 30 ML UDCUP PO PRN (17:45)
[2019-05-27] MEDS ORDERED: IPRATROPIUM BROMIDE 0.5 MG/2.5 ML NEB SOLUTION NEB PRN (17:45)
[2019-05-27] MEDS ORDERED: MORPHINE SULFATE 2 MG/ML SYRINGE IVP PRN (17:45)
[2019-05-27] MEDS ORDERED: ALBUTEROL SULFATE 2.5 MG/0.5 ML NEB SOLUTION NEB PRN (17:45)
[2019-05-27] MEDS ORDERED: BISACODYL 10 MG RECTAL RECTAL SUPPOSITORY PR PRN (17:45)
[2019-05-27] MEDS ORDERED: ZOLPIDEM TARTRATE 5 MG TABLET PO PRN (17:45)
[2019-05-27] MEDS ORDERED: ALBU8HFA IH (17:47)
[2019-05-27 17:59] LABS: GLUCOSE,POINT OF CARE 126 MG/DL (70-110)
[2019-05-27 20:08] VITALS: BP 131/60
[2019-05-27] MEDS: MetFORMIN HCL 500 MG TABLET PO SCH (20:12)
[2019-05-27] MEDS: HYDROCODONE/ACETAMINOPHEN 5-325 MG TABLET PO PRN (20:12)
[2019-05-27] MEDS: GlipiZIDE 10 MG TABLET PO SCH (20:13)
[2019-05-27] MEDS: FUROSEMIDE 20 MG/2 ML VIAL IVP SCH (20:13)
[2019-05-27] MEDS: ATORVASTATIN CALCIUM 40 MG TABLET PO SCH (20:13)
[2019-05-27] MEDS: DOCUSATE SODIUM 100 MG CAPSULE PO SCH (21:00)
[2019-05-27] MEDS: IPRATROPIUM BROMIDE 0.5 MG/2.5 ML NEB SOLUTION NEB SCH (21:21)
[2019-05-27] MEDS: ALBUTEROL SULFATE 2.5 MG/0.5 ML NEB SOLUTION NEB SCH (21:21)
[2019-05-27] MEDS: HEPARIN SODIUM,PORCINE 5,000 UNITS/ML VIAL SQ SCH (23:35)
[2019-05-28 00:01] VITALS: BP 124/65
[2019-05-28] MEDS: ALBUTEROL SULFATE 2.5 MG/0.5 ML NEB SOLUTION NEB SCH ×4 (02:27→20:18)
[2019-05-28] MEDS: IPRATROPIUM BROMIDE 0.5 MG/2.5 ML NEB SOLUTION NEB SCH ×4 (02:27→20:18)
[2019-05-28 05:06] VITALS: BP 106/58
[2019-05-28] MEDS: GlipiZIDE 10 MG TABLET PO SCH ×2 (06:15→17:59)
[2019-05-28 08:04] VITALS: BP 136/71
[2019-05-28] MEDS: DOCUSATE SODIUM 100 MG CAPSULE PO SCH ×3 (09:00→20:38)
[2019-05-28] MEDS: ASPIRIN 81 MG EC TABLET PO SCH (09:15)
[2019-05-28] MEDS: FUROSEMIDE 20 MG/2 ML VIAL IVP SCH ×2 (09:16→20:30)
[2019-05-28] MEDS: PANTOPRAZOLE SODIUM 40 MG DR TABLET PO SCH (09:31)
[2019-05-28] MEDS: ESCITALOPRAM OXALATE 10 MG TABLET PO SCH (09:31)
[2019-05-28] MEDS: SitaGLIPtin PHOSPHATE 100 MG TABLET PO SCH (09:32)
[2019-05-28] MEDS: MetFORMIN HCL 500 MG TABLET PO SCH ×2 (09:32→18:01)
[2019-05-28] MEDS: HEPARIN SODIUM,PORCINE 5,000 UNITS/ML VIAL SQ SCH ×2 (09:34→18:03)
[2019-05-28 12:10] VITALS: BP 138/64
[2019-05-28 18:14] LABS: GLUCOMETER DEV NAME(LOC) 5S.2A; GLUCOSE,POINT OF CARE 147 MG/DL (70-110)
[2019-05-28 18:15] LABS: GLUCOMETER DEV NAME(LOC) 5S.1; GLUCOSE,POINT OF CARE 85 MG/DL (70-110)
[2019-05-28 18:15] LABS: GLUCOMETER DEV NAME(LOC) 5S.1; GLUCOSE,POINT OF CARE 195 MG/DL (70-110)
[2019-05-28 18:15] LABS: GLUCOMETER DEV NAME(LOC) 5S.1; GLUCOSE,POINT OF CARE 187 MG/DL (70-110)
[2019-05-28 19:44] VITALS: BP 128/62
[2019-05-28] MEDS: ATORVASTATIN CALCIUM 40 MG TABLET PO SCH (20:30)
[2019-05-28] MEDS: HYDROCODONE/ACETAMINOPHEN 5-325 MG TABLET PO PRN (20:40)
[2019-05-29] MEDS: HEPARIN SODIUM,PORCINE 5,000 UNITS/ML VIAL SQ SCH ×2 (00:13→08:36)
[2019-05-29 00:17] VITALS: BP 130/79
[2019-05-29] MEDS: IPRATROPIUM BROMIDE 0.5 MG/2.5 ML NEB SOLUTION NEB SCH ×3 (02:00→14:00)
[2019-05-29] MEDS: ALBUTEROL SULFATE 2.5 MG/0.5 ML NEB SOLUTION NEB SCH ×3 (02:00→14:00)
[2019-05-29 04:34] VITALS: BP 139/73
[2019-05-29] MEDS: GlipiZIDE 10 MG TABLET PO SCH (06:42)
[2019-05-29 07:31] LABS: GLUCOMETER DEV NAME(LOC) 5S.1; GLUCOSE,POINT OF CARE 115 MG/DL (70-110)
[2019-05-29 08:04] VITALS: BP 139/73
[2019-05-29] MEDS: ASPIRIN 81 MG EC TABLET PO SCH (08:35)
[2019-05-29] MEDS: ESCITALOPRAM OXALATE 10 MG TABLET PO SCH (08:35)
[2019-05-29] MEDS: PANTOPRAZOLE SODIUM 40 MG DR TABLET PO SCH (08:35)
[2019-05-29] MEDS: MetFORMIN HCL 500 MG TABLET PO SCH (08:35)
[2019-05-29] MEDS: SitaGLIPtin PHOSPHATE 100 MG TABLET PO SCH (08:36)
[2019-05-29] MEDS: FUROSEMIDE 20 MG/2 ML VIAL IVP SCH (08:36)
[2019-05-29] MEDS: DOCUSATE SODIUM 100 MG CAPSULE PO SCH (09:00)
[2019-05-29] MEDS ORDERED: ALBU8HFA IH (11:12)
[2019-05-29] MEDS ORDERED: FURO-152 PO (11:12)
== END 2019-05-29 14:40 | disposition home or self-care (01) | DRG 293 ==
LOC: EMS 22:01 → 5S 05-27 17:28
PROVIDERS: ADMIT Internal Medicine; ATTEND Internal Medicine
DX: I50.41 Acute combined systolic (congestive) and diastolic (congestive) heart failure (principal); E78.5 Hyperlipidemia, unspecified; J44.9 Chronic obstructive pulmonary disease, unspecified; F17.210 Nicotine dependence, cigarettes, uncomplicated; E78.00 Pure hypercholesterolemia, unspecified; E11.9 Type 2 diabetes mellitus without complications; Z88.0 Allergy status to penicillin; Z90.49 Acquired absence of other specified parts of digestive tract
CPT/HCPCS: 93005; 93306; 93970; 94640; J1644; J1940

== ENCOUNTER 2019-06-17 13:04 | Emergency (ER) | payer MEDICARE, OTHER ==
[~2019-06-17] VITALS: Ht 162.6 cm; Wt 100.0 kg
[~2019-06-17 13:04] MED LIST changes: +ALBU8HFA IH; -ALBU8HFA PUFF; +ATOR40TA71 PO; -ESCI10TA PO; +ESCI10TA61 PO; +FURO-152 PO; -GABA-531 PO; -GLIP10 PO; +GLIP10TA9 PO; +METF-446 PO; -METF-960 PO; -PIOG30TA10 PO; +PIOG30TA71 PO; +SITA100 PO
[2019-06-17 13:23] LABS: GLUCOSE,POINT OF CARE 223 MG/DL (70-110)
[2019-06-17] MEDS ORDERED: CEPHALEXIN MONOHYDRATE 500 MG CAPSULE PO ONE (16:15)
[2019-06-17] MEDS ORDERED: PredniSONE 20 MG TABLET PO ONE (16:15)
[2019-06-17] MEDS ORDERED: KETOROLAC TROMETHAMINE 60 MG/2 ML VIAL IM ONE (16:15)
[2019-06-17 17:06] VITALS: BP 128/79
== END 2019-06-17 17:07 | disposition home or self-care (01) ==
LOC: EMS 13:06
DX: J44.1 Chronic obstructive pulmonary disease with (acute) exacerbation (principal); E11.65 Type 2 diabetes mellitus with hyperglycemia; E78.00 Pure hypercholesterolemia, unspecified; I50.9 Heart failure, unspecified; F17.210 Nicotine dependence, cigarettes, uncomplicated; F12.90 Cannabis use, unspecified, uncomplicated; Z59.0 Homelessness; Z79.899 Other long term (current) drug therapy; Z90.49 Acquired absence of other specified parts of digestive tract; Z98.890 Other specified postprocedural states; Z88.0 Allergy status to penicillin
CPT/HCPCS: 82962; 96372; 99283; 99406; J1885; J7512